=== PATIENT | female | born 1975 | race Caucasian/White ===

== ENCOUNTER 2016-11-18 11:54 | Emergency (ER) | payer SELFPAY ==
--- NOTE | 2016-11-18 12:03 | ER Document Report ---
ED Medical Screen (RME) - General Stated Complaint: KNEE PAIN Time seen by provider: 12:03 Mode of Arrival: Ambulatory Information source: Patient Notes: 41-year-old female that's been running is complaining of right knee causing her to limp. The pain got worse last night. No specific injury. No history of gout or arthritis. - Related Data Allergies/Adverse Reactions: No Known Allergies Allergy (Unverified 11/18/16 12:03)
--- NOTE | 2016-11-18 12:47 | ER Document Report ---
HPI - HPI Patient complains to provider of: right knee pain Onset: Other - over three weeks Quality of pain: Achy Severity: Severe Pain Level: 4 Context: Patient presents to the emergency department with complaints of right knee pain. Patient reports pain for over the past 3 weeks. She denies injury. She reports that her knee hurts going up and down stairs, hears popping noise, feels like [id number]. She denies past medical history of injury to the knee. Patient has exercising more, running. Associated Symptoms: None Exacerbated by: Movement Relieved by: Denies Similar symptoms previously: No Recently seen / treated by doctor: No - EENT EENT: DENIES: Sore Throat, Ear Pain, Nasal Drainage-Clear, Nasal Drainage- Purulent, Congestion, Eye problems - NEURO Neurology: DENIES: Headache, Weakness, Vision blurred, Dizzinesss / Vertigo - CARDIOVASCULAR Cardiovascular: DENIES: Chest pain - MUSCULOSKELETAL Musculoskeletal: REPORTS: Extremity pain - right knee, Swelling - right knee. DENIES: Back Pain, Neck Pain - DERM Skin Color: Normal - NURSING COMMENTS Comment: Pt stating she runs a lot for exercise purposes. Pt noticed about 3 weeks ago that her right knee started hurting. Pt has decreased that amount she runs because it is painful. On assessment, right knee appears slightly swollen and is painful to touch. Pt not using crutches or any other assistive devices to walk. Past Medical History - General Information source: Patient Last Menstrual Period: - Social History Smoking Status: Never Smoker Cigarette use (# per day): No Chew tobacco use (# tins/day): No Frequency of alcohol use: None Drug Abuse: None Occupation: homemaker Lives with: Family Family History: None Patient has suicidal ideation: No Patient has homicidal ideation: No - Medical History Medical History: Negative Renal/ Medical History: Denies: Hx Peritoneal Dialysis Surgical Hx: Negative Vertical Provider Document - CONSTITUTIONAL Agree With Documented VS: Yes Exam Limitations: No Limitations General Appearance: WD/WN, No Apparent Distress - INFECTION CONTROL TRAVEL OUTSIDE OF THE [place] IN LAST 30 DAYS: No - HEENT HEENT: Atraumatic, Normocephalic - NECK Neck: Supple - RESPIRATORY Respiratory: No Respiratory Distress - CARDIOVASCULAR Cardiovascular: Regular Rate - MUSCULOSKELETAL/EXTREMETIES Musculoskeletal/Extremeties: MAEW, FROM, Tender - right knee medially ttp, no obvious deformity, no swelling, no erythema, no pain with valgus/vargus stress. - NEURO Level of Consciousness: Awake, Alert, Appropriate Motor/Sensory: No Motor Deficit - DERM Integumentary: Warm, Dry Course - Re-evaluation Re-evalutation: 11/18/16 12:56 She instructed on x-ray. Patient declined crutches or splint. Patient reports she will follow up with her primary care provider Dr. Glynn for ortho referral. - Diagnostic Test Radiology reviewed: Image reviewed, Reports reviewed - IMPRESSION: NEGATIVE STUDY OF THE RIGHT KNEE. NO EXPLANATION FOR PAIN. Discharge - Discharge Clinical Impression: elevated blood pressure Right knee pain Qualifiers: Chronicity: acute Qualified Code(s): M25.561 - Pain in right knee Condition: Stable Disposition: HOME, SELF-CARE Instructions: Ice & Elevation ([facility]), Ibuprofen (General) ([facility]) Additional Instructions: *You have been evaluated for right knee pain *Monitor your blood pressure. Your blood pressure was elevated today. This may be because you were anxious, in pain or because you need medication. It is important to follow up with your primary care provider for full evaluation. *Rest/Ice/Elevate, avoid running *Follow up with your primary care provider next week for referral to orthopedics as indicated *Take ibuprofen as prescribed *Return to ED for worsening condition, changes, needs Prescriptions: Ibuprofen [Motrin 800 mg Tablet] 800 mg PO TID #30 tablet Forms: Elevated Blood Pressure
[2016-11-18 13:12] VITALS: BP 129/77
== END 2016-11-18 13:13 | disposition home or self-care (01) ==
LOC: ER 11:54
DX: R03.0 Elevated blood-pressure reading, without diagnosis of hypertension (principal); M25.561 Pain in right knee
CPT/HCPCS: 99283

== ENCOUNTER → 2017-04-11 | Outpatient (CLI) | payer MEDICAID ==
--- NOTE | 2017-04-11 15:36 | WOMENS IMAGING REPORT ---
EXAM DESCRIPTION: BILAT SCREENING MAMMO W/CAD COMPLETED DATE/TIME: 04/11/2017 1:56 pm REASON FOR STUDY: Z12.31, ROUTINE SCREENING MAMMO Z12.31 ENCNTR SCREEN MAMMOGRAM FOR MALIGNANT NEOP LASM OF YANETH COMPARISON: None. TECHNIQUE: Standard craniocaudal and mediolateral oblique views of each breast recorded using [employer] Dxa l acquisition. LIMITATIONS: None. FINDINGS: Findings present which are benign by mammographic criteria. No suspicious masses, calcifi cations or architectural distortion. Pertinent benign findings: Scattered benign calcifications without suspicious features bilaterally. Read with the assistance of CAD. .[facility] - R2 Cenova Version 1.3 .[facility] - R2 Cenova Version 1.3 .[facility] - R2 Cenova Version 2.4 .[facility] [place] Cenova Version 2.4 .[facility] - R2 Neon [employer] Maker Version 9.2 Benign mammographic findings may include one or more of the following: Smooth masses, popcorn/rim/co arse calcifications, asymmetries, post-procedure changes, and lesions with long-standing stability. IMPRESSION: BENIGN MAMMOGRAPHIC FINDINGS. BIRADS 2 BREAST DENSITY: c. The breasts are heterogeneously dense, which may obscure small masses. BIRAD: 2 BENIGN FINDING(S) RECOMMENDATION: ROUTINE SCREENING COMMENT: The patient has been notified of the results by letter per SA requirements. Additional no tification policies are in place for contacting patient with suspicious or incomplete findings. Quality ID #[id number]: The [employer] recommends an annual screening mammogram for women aged 40 years or over. This facility utilizes a reminder system to ensure that all patients receive reminder letters, and/or direct phone calls for appointments. This includes reminders for routine scr eening mammograms, diagnostic mammograms, or other Breast Imaging Interventions when appropriate. Th is patient will be placed in the appropriate reminder system. The [employer] (ACR) has developed recommendations for screening MRI of the breast s in certain patient populations, to be used in conjunction with mammography. Breast MRI surveillanc e may be appropriate for women with more than 20% lifetime risk of developing breast cancer as deter mined by genetic testing, significant family history of the disease, or history of mantle radiation f or Hodgkins Disease. ACR Practice Guidelines 2008. TECHNICAL DOCUMENTATION: FINDING NUMBER: (1) ASSESSMENT: (1) JOB ID: [id number] [employer]- All Rights Reserved
== END ==
LOC: WI 13:36
PROVIDERS: ATTEND Family Medicine
DX: Z12.31 Encounter for screening mammogram for malignant neoplasm of breast (principal)
CPT/HCPCS: 77067; G0202